=== PATIENT | female | born 2000 | race Two or more races ===

== ENCOUNTER 2024-02-29 02:10 | Emergency (ER) | payer MEDICAID ==
[~2024-02-29] VITALS: Ht 160 cm; Wt 88.6 kg
[~2024-02-29 02:10] MED LIST: ALBUAER3 IN; BENZ200C64 PO; CEPH500T PO; PRED20TA2 PO
[2024-02-29] MEDS: ALBUTEROL SULF 2.5 MG/0.5ML(0.5%) NEB SOLN NEB ONE (02:54)
[2024-02-29] MEDS: IPRATROPIUM BROM 0.5 MG/2.5ML INH SOL NEB ONE (02:54)
[2024-02-29] MEDS: BUDESONIDE (INHALATION) 0.5 MG/2 ML NEB NEB ONE (03:18)
[2024-02-29] MEDS: DexAMETHasone SOD PHOS 10MG/1ML VIAL INJ PO ONE (03:18)
[2024-02-29] MEDS: BUDESONIDE (INHALATION) 0.5 MG/2 ML NEB ONE (03:20)
[2024-02-29] MEDS ORDERED: AMOX875T4 PO (05:21)
[2024-02-29] MEDS ORDERED: DEX4T PO (05:21)
[2024-02-29] MEDS ORDERED: ALBUAER3 IN (05:21)
[2024-02-29 05:58] VITALS: BP 118/58; PULSE 104; RESP 20; TEMP 98.3; O2SAT 93
== END 2024-02-29 05:59 | disposition home or self-care (01) ==
LOC: ER 02:10
DX: J20.9 Acute bronchitis, unspecified (principal); F12.10 Cannabis abuse, uncomplicated
CPT/HCPCS: 71045; 94640; 99283; J1100; J7644

== ENCOUNTER 2024-04-02 17:46 | Emergency (ER) | payer MEDICAID ==
[~2024-04-02] VITALS: Ht 167.6 cm; Wt 86.2 kg
[~2024-04-02 17:46] MED LIST changes: +AMOX875T4 PO; +DEX4T PO
[2024-04-02] MEDS: IPRATROPIUM BROM 0.5 MG/2.5ML INH SOL NEB ONE (19:16)
[2024-04-02] MEDS: ALBUTEROL SULF 2.5 MG/0.5ML(0.5%) NEB SOLN NEB ONE (19:16)
[2024-04-02] MEDS ORDERED: PROM1SOL4 PO (20:36)
[2024-04-02] MEDS ORDERED: MONT-8 PO (20:36)
[2024-04-02] MEDS ORDERED: PRED20TA2 PO (20:36)
[2024-04-02 21:00] VITALS: BP 120/67; PULSE 108; RESP 18; TEMP 97.5; O2SAT 93
[2024-04-02] MEDS: methylPREDNISolone SOD SUCC 125 MG/2 ML VL IM ONE (21:03)
== END 2024-04-02 21:08 | disposition home or self-care (01) ==
LOC: ER 17:46
DX: J20.9 Acute bronchitis, unspecified (principal); F15.90 Other stimulant use, unspecified, uncomplicated
CPT/HCPCS: 71045; 94640; 96372; 99283; J2919; J7644

== ENCOUNTER 2025-10-13 10:19 | Emergency (ER) | payer BC, MEDICAID ==
[~2025-10-13] VITALS: Ht 157.5 cm; Wt 85.5 kg
[~2025-10-13 10:19] MED LIST changes: +MONT-8 PO; +PROM1SOL4 PO
--- NOTE | 2025-10-13 11:24 | ED.PDOC ---
NURSING STUDENT HPI Comments 25 y.o female presents to the ED for a chief complaint of vaginal bleeding that started one day ago. Patient had a positive at home test x 1 week ago with LMP on 08/21/25. She states yesterday began spotting and today noticed heavier bleeding, saturating one pad per hour. Patient has a history of miscarriage in the past with FRAMING SPECIALIST hx of . She denies any pain, fever, chills, nausea, vomiting, or dysuria. Chief Complaint: Vaginal Bleed Time Seen by MD: 10:53 Reviewed Notes: Nurses Notes, Medications, Allergies Allergies: Coded Allergies: No Known Drug Allergy (Verified Allergy, Unknown, 07/10/23) Home Meds Active Scripts Promethazine-Dm (Promethazine Dm 6.25-15 mg/5Ml) 1 Angy Angy, 5 ML PO TID PRN, #240 ML Prov:ABDULLAHI FRASER DROP HAMMER OPERATOR HELPER 04/02/24 Montelukast Sodium (MONTELUKAST SODIUM) 10 Mg Tab, 1 TAB PO DAILY PRN, #30 TAB 5 Refills Prov:ABDULLAHI FRASER DROP HAMMER OPERATOR HELPER 04/02/24 Prednisone (Prednisone) 20 Mg Tab, 20 MG PO DAILY for 5 Days, #5 MG Prov:ABDULLAHI FRASER DROP HAMMER OPERATOR HELPER 04/02/24 Amoxicillin & Pot Clavulanate (Amoxicillin/Potassium Cla) 875 Mg Tab, 1 TAB PO BID for 10 Days, #20 TAB Prov:MARY CUMMINGS DO 02/29/24 Albuterol Sulfate (VENTOLIN MDI) 90 Mcg Ih, 90 MCG IN Q6HP PRN for 20 Days, #1 INHALER Prov:MARY CUMMINGS DO 02/29/24 Dexamethasone (Decadron) 4 Mg Tb, 8 MG PO DAILY for 9 Days, #18 TAB Prov:MARY CUMMINGS DO 02/29/24 Benzonatate (Benzonatate) 200 Mg Cap, 1 CAP PO TID, #30 CAP as needed for cough Prov:MARGOT SCHWARTZA Q ELECTRICIAN OUTSIDE 07/10/23 Albuterol Sulfate (VENTOLIN MDI) 90 Mcg Ih, 1 PUFF IN Q4HR, #1 INH As needed for cough and nasal congestion and shortness of breath or wheeze Prov:VIKTOR SCHWARTZALDA Q ELECTRICIAN OUTSIDE 07/10/23 Prednisone (Prednisone) 20 Mg Tab, 1 TAB PO DAILY for 5 Days, #5 TAB Start tomorrow with food Prov:MO SCHWARTZ ELECTRICIAN OUTSIDE 07/10/23 Cephalexin Monohydrate (Cephalexin) 500 Mg Tab, 1 TAB PO TID for 10 Days, #30 TAB Prov:MO SCHWARTZ ELECTRICIAN OUTSIDE 07/10/23 Information Source: Patient Mode of Arrival: Ambulatory Timing: Days (1) Severity: Moderate Vaginal Discharge: None Vaginal Lesions: None Bleeding Quality: Bright Red Vaginal Mass: None Onset Of Mass/Bleeding: Spontaneous Sexual Activity: Last Consensual [place]: Unknown History of: Current Associated Signs and Symptoms: Vaginal Bleeding Past Medical History PAST MEDICAL HISTORY: Denies Surgical History: Denies all surgeries FRAMING SPECIALIST History: Denies all FRAMING SPECIALIST Hx Family History Family History: Reviewed,noncontributory to illness Social History Smoker: Non-Smoker Alcohol: Denies ETOH Use Drugs: Marijuana Lives In: Home Constitutional: denies: chills, diaphoresis, fatigue, fever, malaise, sweats, weakness, others EENTM: denies: blurred vision, double vision, ear bleeding, ear discharge, ear drainage, ear pain, ear ringing, eye pain, eye redness, hearing loss, mouth pain, mouth swelling, nasal discharge, nose bleeding, nose congestion, nose pain, photophobia, tearing, throat pain, throat swelling, voice changes, others Respiratory: denies: cough, hemoptysis, orthopnea, SOB at rest, shortness of breath, SOB with excertion, stridor, wheezing, others Cardiovascular: denies: chest pain, dizzy spells, diaphoresis, Dyspnea on e xertion, edema, irregular heart beat, left arm pain, lightheadedness, palpitations, PND, syncope, others Gastrointestinal: denies: abdomen distended, abdominal pain, blood streaked bowels, constipated, diarrhea, dysphagia, difficulty swallowing, hematemesis, melena, nausea, poor appetite, poor fluid intake, rectal bleeding, rectal pain, vomiting, others Genitourinary: reports: abnormal vagina bleeding, ; denies: burning, dyspareunia, dysuria, flank pain, frequency, hematuria, incontinence, pain, vagina discharge, urgency, others Neurological: denies: dizziness, fainting, headache, left sided numbness, left sided weakness, numbness, paresthesia, pre-existing deficit, right sided numbness, right sided weakness, seizure, speech problems, tingling, tremors, weakness, others Musculoskeletal: denies: back pain, gout, joint pain, joint swelling, muscle pain, muscle stiffness, neck pain, others Integumetry: denies: bruises, change in color, change in hair/nails, dryness, laceration, lesions, lumps, rash, wounds, others Allergic/Immunocompromised: denies: Difficulty Healing, Frequent Infections, Hives, Itching, others Hematologic/Lymphatic: denies: anemia, blood clots, easy bleeding, easy bruis ing, swollen glands, others Endocrine: denies: excessive hunger, excessive sweating, excessive thirst, exc essive urination, flushing, intolerance to cold, intolerance to heat, unexplained weight gain, unexplained weight loss, others Psychiatric: denies: anxiety, bipolar disorder, depression, hopeless, panic disorder, schizophrenia, sleepless, suicidal, others All Other Systems: Reviewed and Negative Physical Exam General Appearance: No Apparent Distress, Normal HEENT: Normal ENT Inspection, Pharynx Normal, TMs Normal Neck: Full Range of Motion, Non-Tender, Normal, Normal Inspection Respiratory: Chest Non-Tender, Lungs Clear, No Accessory Muscle Use, No Respiratory Distress, Normal Breath Sounds Cardiovascular: No Edema, No JVD, No Murmur, No Gallop, Normal Peripheral Pulses, Regular Rate/Rhythm Breast Exam: Deferred Gastrointestinal: No Organomegaly, Non Tender, No Pulsatile Mass, Normal Bowel Sounds, Soft Genitalia: Deferred Pelvic: Deferred Rectal: Deferred Extremities: No calf tenderness, Normal capillary refill, Normal inspection, Normal range of motion, Non-tender, No pedal edema Musculoskeletal : Apperance: Normal Neurologic: Alert, surveillance systems analyst II-XII nml as Tested, No Motor Deficits, Normal Affect, Normal Mood, No Sensory Deficits Cerebellar Function: Normal Reflexes: Normal Skin: Dry, Normal Color, Warm Lymphatic: No Adenopathy Was a procedure done? Was a procedure done?: No Differential Diagnosis (FRAMING SPECIALIST) Vaginal Bleeding: - Complete, - Incomplete, - Inevitable, - Missed, - Threatened, Abruptio Placentae, Blood Loss Anemia, Dysmenorrhea, Menorrhagia, Menometrorrhagia, Menstrual Bleeding X-Ray, Labs, Meds, VS Vital Signs Date Time Temp Pulse Resp B/P (MAP) Pulse Ox O2 Delivery O2 Flow Rate FiO2 10/13/25 11:02 98.0 78 20 116/62 (80) 96 98.0 10/13/25 11:02 78 20 96 Room Air 10/13/25 10:44 97.9 78 18 126/93 100 97.9 Lab Test 10/13/25 11:12 10/13/25 10:54 Range/Units White Blood Count 6.9 4.4-10.8 10^3/uL Red Blood Count 4.92 4.0-5.20 10^6/uL Hemoglobin 14.7 12.2-16.2 g/dL Hematocrit 43.5 36.0-46.0 % Mean Corpuscular Volume 88.5 80.0-100.0 fL Mean Corpuscular Hemoglobin 29.9 28.0-32.0 pg Mean Corpuscular Hemoglobin Concent 33.8 32.0-36.0 g/dL Red Cell Distribution Width 13.0 11.8-14.3 % Platelet Count 224 140-450 10^3/uL Mean Platelet Volume 9.2 6.9-10.8 fL Neutrophils (%) (Auto) 65.6 37.0-80.0 % Lymphocytes (%) (Auto) 22.2 10.0-50.0 % Monocytes (%) (Auto) 6.5 0.0-12.0 % Eosinophils (%) (Auto) 5.3 0.0-7.0 % Basophils (%) (Auto) 0.4 0.0-2.0 % Neutrophils # (Auto) 4.5 1.6-8.6 10 ^3/uL Lymphocytes # (Auto) 1.5 0.4-5.4 10 ^3/uL Monocytes # (Auto) 0.4 0-1.3 10 ^3/uL Eosinophils # (Auto) 0.4 0-0.8 10 ^3/uL Basophils # (Auto) 0 0-0.2 10 ^3/uL Nucleated Red Blood Cells 0.1 % Sodium Level 140 136-145 mmol/L Potassium Level 3.9 3.5-5.1 mmol/L Chloride Level 105 98-107 mmol/L Carbon Dioxide Level 26 20-31 mmol/L Anion Gap 9 5-15 Blood Urea Nitrogen 8 L 9-23 mg/dL Creatinine 0.66 0.550-1.02 mg/dL Glomerular Filtration Rate Calc 126 >90 mL/min BUN/Creatinine Ratio 12.1 10.0-20.0 Serum Glucose 99 74-106 mg/dL Calcium Level 9.4 8.7-10.4 mg/dL Beta HCG, Quantitative 58.6 H 1.5-4.2 mIU/mL Urine Color Light-yellow Yellow Urine Clarity Clear Clear Urine pH 6.0 5.0-9.0 Urine Specific [place] 1.018 1.001-1.035 Urine Protein Negative Negative Urine Ketones Negative Negative Urine Blood 3+ H Negative /uL Urine Nitrite Negative Negative Urine Bilirubin Negative Negative Urine Urobilinogen Normal Negative mg/dL Urine Leukocyte Esterase Negative Negative /uL Urine RBC 215 0 - 4 /hpf Urine Microscopic WBC < 1 0-5 /HPF Urine Squamous Epithelial Cells Few <5 /hpf Urine Bacteria Few H None Seen /hpf Urine Glucose Normal Normal mg/dL Time of 1ST Reevaluation: 11:21 Reevaluation 1ST: Unchanged Patient Education/Counseling: Diagnosis, Treatment, Prognosis Family Education/Counseling: No Family Present Departure 1 Departure Time of Disposition: 12:38 (Patient likely with a threatened miscarriage. Patient's beta hCG is 58.6. This is too low to see anything on ultrasound. We will discharge patient home with outpatient follow up) Impression: Primary Impression: Threatened miscarriage Disposition: 01 HOME / SELF CARE / HOMELESS Condition: Stable Referrals: TAJ DUMONT DO Additional Instructions: You have a threatened miscarriage. Your beta hcg level today was 58.6. This is too low to see anything on ultrasound. You were referred to an Ob. Please call for an appointment. You should follow up with OBGYN within three days to recheck your blood work. If your symptoms worsen or you have any other concerns then please return to the ER. Discharged With: Self Critical Care Note Critical Care Time?: No Stability Stability form required: No I personally scribed for DARIUS JOSHI MD ([email or web address]) on 10/13/25 at 11:24. Electronically submitted by Jessica Rousseau ([facility]). DARIUS JOSHI MD Oct 13, 2025 11:24
[2025-10-13 11:27] LABS: Chloride 105 mmol/L (98-107); Hematocrit 43.5 % (36.0-46.0); Hemoglobin 14.7 g/dL (12.2-16.2); Mean Corpuscular Hemoglobin 29.9 pg (28.0-32.0); Mean Corpuscular Volume 88.5 fL (80.0-100.0); Nucleated Red Blood Cells % 0.1 %; Potassium 3.9 mmol/L (3.5-5.1); Sodium 140 mmol/L (136-145)
[2025-10-13 11:28] LABS: Anion Gap 9 (5-15); Calcium 9.4 mg/dL (8.7-10.4); Carbon Dioxide 26 mmol/L (20-31)
[2025-10-13 11:33] LABS: BUN/Creatinine Ratio 12.1 (10.0-20.0); Blood Urea Nitrogen 8 mg/dL (9-23); Glucose 99 mg/dL (74-106)
[2025-10-13 11:34] LABS: Urine Protein, UAD Negative (Negative)
[2025-10-13 13:42] VITALS: BP 122/67; PULSE 76; RESP 18; TEMP 98.2; O2SAT 98
== END 2025-10-13 13:43 | disposition home or self-care (01) ==
LOC: ER 10:19
DX: O20.0 Threatened abortion (principal); Z79.52 Long term (current) use of systemic steroids
CPT/HCPCS: 36415; 80048; 81001; 84702; 85025

== ENCOUNTER 2025-10-15 09:41 | Emergency (ER) | payer BC ==
[~2025-10-15] VITALS: Ht 157.5 cm; Wt 87.7 kg
--- NOTE | 2025-10-15 10:23 | ED.PDOC ---
AUTOMATIC MACHINE ATTENDANT HPI Comments 25 year old female presents to the ED with a chief complaint of vaginal bleeding onset 3 days. Patient took at an home test about 1 week ago, was positive, P:0 A:1, LMP was 08/21/25. She began experiencing vaginal spotting 3 days ago, was seen in this ED on 10/13/25, advised to return to ED in 2 days to recheck HCG levels. Denies fall, injury, dysuria, nausea, vomiting, diarrhea, vaginal discharge, dizziness, headache. No other symptoms or modifying factors present at this time. Chief Complaint: Vaginal Bleed Time Seen by MD: 10:10 Reviewed Notes: Medications, Allergies Allergies: Coded Allergies: No Known Drug Allergy (Verified Allergy, Unknown, 07/10/23) Home Meds Active Scripts Promethazine-Dm (Promethazine Dm 6.25-15 mg/5Ml) 1 Angy Angy, 5 ML PO TID PRN, #240 ML Prov:ABDULLAHI FRASER ORTHOPEDIC TECHNICIAN 04/02/24 Montelukast Sodium (MONTELUKAST SODIUM) 10 Mg Tab, 1 TAB PO DAILY PRN, #30 TAB 5 Refills Prov:ABDULLAHI FRASER ORTHOPEDIC TECHNICIAN 04/02/24 Prednisone (Prednisone) 20 Mg Tab, 20 MG PO DAILY for 5 Days, #5 MG Prov:ABDULLAHI FRASER ORTHOPEDIC TECHNICIAN 04/02/24 Amoxicillin & Pot Clavulanate (Amoxicillin/Potassium Cla) 875 Mg Tab, 1 TAB PO BID for 10 Days, #20 TAB Prov:MARY CUMMINGS DO 02/29/24 Albuterol Sulfate (VENTOLIN MDI) 90 Mcg Ih, 90 MCG IN Q6HP PRN for 20 Days, #1 INHALER Prov:MARY CUMMINGS DO 02/29/24 Dexamethasone (Decadron) 4 Mg Tb, 8 MG PO DAILY for 9 Days, #18 TAB Prov:MARY CUMMINGS DO 02/29/24 Benzonatate (Benzonatate) 200 Mg Cap, 1 CAP PO TID, #30 CAP as needed for cough Prov:MO SCHWARTZ Q ELECTRON BEAM MACHINE WELDER SETTER 07/10/23 Albuterol Sulfate (VENTOLIN MDI) 90 Mcg Ih, 1 PUFF IN Q4HR, #1 INH As needed for cough and nasal congestion and shortness of breath or wheeze Prov:MO SCHWARTZ Lianne BRUNER 07/10/23 Prednisone (Prednisone) 20 Mg Tab, 1 TAB PO DAILY for 5 Days, #5 TAB Start tomorrow with food Prov:MO SCHWARTZ Lianne BRUNER 07/10/23 Cephalexin Monohydrate (Cephalexin) 500 Mg Tab, 1 TAB PO TID for 10 Days, #30 TAB Prov:MO SCHWARTZ Lianne BRUNER 07/10/23 Information Source: Patient Mode of Arrival: Ambulatory Timing: Days Prehospital treatment: None Severity: Moderate Vaginal Discharge: None Vaginal Lesions: None Bleeding Quality: Bright Red Vaginal Mass: None Onset Of Mass/Bleeding: Spontaneous Sexual Activity: Last Consensual [place]: Unknown Control: None History of: Current Symptoms of Possible : Missed Period Associated Signs and Symptoms: Vaginal Bleeding Past Medical History PAST MEDICAL HISTORY: Denies Surgical History: Denies all surgeries COUTURIERE History: Denies all COUTURIERE Hx Family History Family History: Reviewed,noncontributory to illness Social History Smoker: Non-Smoker Alcohol: Denies ETOH Use Drugs: Marijuana Lives In: Home Constitutional: denies: chills, diaphoresis, fatigue, fever, malaise, sweats, weakness, others EENTM: denies: blurred vision, double vision, ear bleeding, ear discharge, ear drainage, ear pain, ear ringing, eye pain, eye redness, hearing loss, mouth pain, mouth swelling, nasal discharge, nose bleeding, nose congestion, nose pain, photophobia, tearing, throat pain, throat swelling, voice changes, others Respiratory: denies: cough, hemoptysis, orthopnea, SOB at rest, shortness of breath, SOB with excertion, stridor, wheezing, others Cardiovascular: denies: chest pain, dizzy spells, diaphoresis, Dyspnea on exertion, edema, irregular heart beat, left arm pain, lightheadedness, palpitations, PND, syncope, others Gastrointestinal: denies: abdomen distended, abdominal pain, blood streaked bowels, constipated, diarrhea, dysphagia, difficulty swallowing, hematemesis, melena, nausea, poor appetite, poor fluid intake, rectal bleeding, rectal pain, vomiting, others Genitourinary: reports: abnormal vagina bleeding, ; denies: burning, dyspareunia, dysuria, flank pain, frequency, hematuria, incontinence, pain, vagina discharge, urgency, others Neurological: denies: dizziness, fainting, headache, left sided numbness, left sided weakness, numbness, paresthesia, pre-existing deficit, right sided numbness, right sided weakness, seizure, speech problems, tingling, tremors, weakness, others Musculoskeletal: denies: back pain, gout, joint pain, joint swelling, muscle pain, muscle stiffness, neck pain, others Integumetry: denies: bruises, change in color, change in hair/nails, dryness, laceration, lesions, lumps, rash, wounds, others Allergic/Immunocompromised: denies: Difficulty Healing, Frequent Infections, Hives, Itching, others Hematologic/Lymphatic: denies: anemia, blood clots, easy bleeding, easy bruising, swollen glands, others Endocrine: denies: excessive hunger, excessive sweating, excessive thirst, excessive urination, flushing, intolerance to cold, intolerance to heat, unexplained weight gain, unexplained weight loss, others Psychiatric: denies: anxiety, bipolar disorder, depression, hopeless, panic disorder, schizophrenia, sleepless, suicidal, others All Other Systems: Reviewed and Negative Physical Exam General Appearance: Normal HEENT: Normal ENT Inspection, Pharynx Normal, TMs Normal Neck: Full Range of Motion, Non-Tender, Normal, Normal Inspection Respiratory: Chest Non-Tender, Lungs Clear, No Accessory Muscle Use, No Respiratory Distress, Normal Breath Sounds Cardiovascular: No Edema, No JVD, No Murmur, No Gallop, Normal Peripheral Pulses, Regular Rate/Rhythm Breast Exam: Deferred Gastrointestinal: No Organomegaly, Non Tender, No Pulsatile Mass, Normal Bowel Sounds, Soft Genitalia: Deferred Pelvic: Deferred Rectal: Deferred Extremities: No calf tenderness, Normal capillary refill, Normal inspection, Normal range of motion, Non-tender, No pedal edema Musculoskeletal : Apperance: Normal Neurologic: Alert, central supply manager II-XII nml as Tested, No Motor Deficits, Normal Affect, Normal Mood, No Sensory Deficits Cerebellar Function: Normal Reflexes: Normal Skin: Dry, Normal Color, Warm Lymphatic: No Adenopathy Was a procedure done? Was a procedure done?: No Differential Diagnosis (COUTURIERE) Vaginal Bleeding: - Complete, - Incomplete, - Missed, - Threatened, UTI X-Ray, Labs, Meds, VS Vital Signs Date Time Temp Pulse Resp B/P (MAP) Pulse Ox O2 Delivery O2 Flow Rate FiO2 10/15/25 11:55 68 16 98 Room Air* 0 21 10/15/25 11:54 97.4 70 16 141/75 (97) 99 97.4 10/15/25 09:43 97.8 76 15 120/77 97 97.8 Lab Test 10/15/25 11:07 Range/Units White Blood Count 6.4 4.4-10.8 10^3/uL Red Blood Count 4.70 4.0-5.20 10^6/uL Hemoglobin 14.1 12.2-16.2 g/dL Hematocrit 41.4 36.0-46.0 % Mean Corpuscular Volume 88.2 80.0-100.0 fL Mean Corpuscular Hemoglobin 29.9 28.0-32.0 pg Mean Corpuscular Hemoglobin Concent 33.9 32.0-36.0 g/dL Red Cell Distribution Width 13.2 11.8-14.3 % Platelet Count 240 140-450 10^3/uL Mean Platelet Volume 9.4 6.9-10.8 fL Neutrophils (%) (Auto) 60.8 37.0-80.0 % Lymphocytes (%) (Auto) 25.6 10.0-50.0 % Monocytes (%) (Auto) 4.7 0.0-12.0 % Eosinophils (%) (Auto) 8.6 H 0.0-7.0 % Basophils (%) (Auto) 0.3 0.0-2.0 % Neutrophils # (Auto) 3.9 1.6-8.6 10 ^3/uL Lymphocytes # (Auto) 1.6 0.4-5.4 10 ^3/uL Monocytes # (Auto) 0.3 0-1.3 10 ^3/uL Eosinophils # (Auto) 0.5 0-0.8 10 ^3/uL Basophils # (Auto) 0 0-0.2 10 ^3/uL Nucleated Red Blood Cells 0.1 % Sodium Level 143 136-145 mmol/L Potassium Level 3.9 3.5-5.1 mmol/L Chloride Level 107 98-107 mmol/L Carbon Dioxide Level 26 20-31 mmol/L Anion Gap 10 5-15 Blood Urea Nitrogen 5 L 9-23 mg/dL Creatinine 0.66 0.550-1.02 mg/dL Glomerular Filtration Rate Calc 126 >90 mL/min BUN/Creatinine Ratio 7.6 L 10.0-20.0 Serum Glucose 98 74-106 mg/dL Calcium Level 9.0 8.7-10.4 mg/dL Beta HCG, Quantitative 65.9 H 1.5-4.2 mIU/mL Time of 1ST Reevaluation: 10:40 Reevaluation 1ST: Unchanged Patient Education/Counseling: Diagnosis, Treatment, Prognosis Family Education/Counseling: No Family Present Departure 1 Departure Time of Disposition: 13:24 (Patient's beta increased to 65 from 58. We will discharge patient home with OB follow up) Impression: Primary Impression: Threatened miscarriage Disposition: HOME / SELF CARE / HOMELESS Condition: Stable Referrals: TAJ DUMONT DO Additional Instructions: Your beta hCG only increased to 65 today. It is important to call doctor Akhil and for an appointment this week. Discharged With: Self Critical Care Note Critical Care Time?: No Stability Stability form required: No Heart Score Heart Score: Heart Score Response (Comments) Value History N/A 0 EKG N/A 0 Age N/A 0 Risk Factors N/A 0 Troponin N/A 0 Total 0 I personally scribed for DARIUS JOSHI MD ([email or web address]) on 10/15/25 at 10:23. Electronically submitted by Aleena Sands ([email or web address]). I personally scribed for DARIUS JOSHI MD ([email or web address]) on 10/15/25 at 11:32. Electronically submitted by Aleena Sands ([email or web address]). DARIUS JOSHI MD Oct 15, 2025 10:23
[2025-10-15 11:44] LABS: Hematocrit 41.4 % (36.0-46.0); Hemoglobin 14.1 g/dL (12.2-16.2); Mean Corpuscular Hemoglobin 29.9 pg (28.0-32.0); Mean Corpuscular Volume 88.2 fL (80.0-100.0); Nucleated Red Blood Cells % 0.1 %
[2025-10-15 11:50] LABS: Potassium 3.9 mmol/L (3.5-5.1); Sodium 143 mmol/L (136-145)
[2025-10-15 11:51] LABS: Anion Gap 10 (5-15); Carbon Dioxide 26 mmol/L (20-31)
[2025-10-15 11:52] LABS: Calcium 9.0 mg/dL (8.7-10.4)
[2025-10-15 11:54] VITALS: BP 141/75; TEMP 97.4
[2025-10-15 11:55] VITALS: PULSE 68; RESP 16; O2SAT 98
[2025-10-15 11:56] LABS: BUN/Creatinine Ratio 7.6 (10.0-20.0); Glucose 98 mg/dL (74-106)
[2025-10-15 11:57] LABS: Blood Urea Nitrogen 5 mg/dL (9-23); Chloride 107 mmol/L (98-107)
== END 2025-10-15 15:18 | disposition home or self-care (01) ==
LOC: ER 09:41
DX: O20.0 Threatened abortion (principal); Z3A.01 Less than 8 weeks gestation of pregnancy
CPT/HCPCS: 36415; 80048; 84702; 85025